=== PATIENT | male | born 1950 | race Caucasian/White ===

== ENCOUNTER → 2016-09-20 | Outpatient (CLI) | payer OTHER ==
--- NOTE | 2016-09-20 10:51 | US ---
Left Extremity Nonvascular Limited Ultrasound Indication: Unilateral inguinal pain. Rule out hernia. Technique: Left inguinal ultrasound is performed with and without Valsalva. Findings: Small inguinal lymph nodes are identified that are normal in ultrasound characteristics. Me dial to the inguinal canal, there is a hernia with opening of approximately 1 cm that contains all me senteric fat. No bowel. It is fully reducible. This is medial to the inguinal vessels. Impression: Left inguinal hernia medial to the inguinal vessels with an opening of about 1 cm in size , containing fat, fully reducible.
== END ==
LOC: FIMAGING 09:25
PROVIDERS: ATTEND Orthopaedic Surgery
DX: K40.90 Unilateral inguinal hernia, without obstruction or gangrene, not specified as recurrent (principal)

== ENCOUNTER 2016-10-26 09:25 | Day surgery (SDC) | payer OTHER ==
[2016-10-26] MEDS ORDERED: LIDOCAINE 1% 2 ML INJ ONE (09:43)
[2016-10-26] MEDS ORDERED: LIDOCAINE 1% 5 ML SDV ID PRN (09:50)
[2016-10-26] MEDS ORDERED: LR 1,000 ML IV ONE (09:50)
[2016-10-26] MEDS ORDERED: BUPIVACAINE 0.5% 30 ML SDV ONE (10:18)
[2016-10-26] MEDS ORDERED: LIDOCAINE 1% 30 ML SDV ONE (10:18)
[2016-10-26] MEDS ORDERED: CEFAZOLIN 1 GM/DEXTROSE/50 ML BAG IV ONE (10:19)
[2016-10-26] MEDS ORDERED: fentaNYL 100 MCG/2 ML INJ ONE (10:33)
[2016-10-26] MEDS ORDERED: morphINE *ANESTHESIA ONLY* 10 MG/ML VIAL ONE (10:37)
[2016-10-26] MEDS ORDERED: PROPOFOL/EMULSION 500 MG/50 ML BOTTLE IV ONE ×2 (10:38→11:31)
[2016-10-26] MEDS ORDERED: fentaNYL 100 MCG/2 ML INJ IVP ONE ×2 (11:00)
[2016-10-26] MEDS ORDERED: LORazepam 2 MG/ML INJ IVP ONE (11:00)
[2016-10-26] MEDS ORDERED: ONDANSETRON 4 MG/2 ML VIAL ONE (11:32)
[2016-10-26] MEDS ORDERED: LABETALOL HCL 5 MG/ML 20 ML MDV ONE (12:15)
[2016-10-26] MEDS ORDERED: HYDROCODONE/APAP 5/325 TAB ONE (12:45)
--- NOTE | 2016-10-26 14:43 | GOP ---
[f rep st] OPERATIVE REPORT DATE OF OPERATION: 10/26/2016 SURGEON: Joseph Wright MD ANESTHESIA: Monitored anesthetic care per Dr. Johns. PREOPERATIVE DIAGNOSIS: Left inguinal hernia. POSTOPERATIVE DIAGNOSIS: Left inguinal hernia. PROCEDURE PERFORMED: Open left inguinal hernia repair. FINDINGS: Patient had a moderate direct hernia and a moderate lipoma of the cord. ESTIMATED BLOOD LOSS: 20 cc. INDICATIONS: This is a 66-year-old male with a history of left groin bulge. Risks and benefits of procedure are discussed with the patient, questions were answered, and he wished to proceed. DESCRIPTION OF PROCEDURE: The patient was placed in the supine position. After the induction of adequate IV sedation, the patient was prepped and draped in the standard surgical fashion. Marcaine 0.5% was injected throughout the left groin for local anesthesia. An oblique incision was made and carried to the subcutaneous tissue using cautery. The external oblique was incised in the direction of its fibers. The cord was then surrounded at the pubic tubercle. The cord structures were then carefully dissected, preserving the vas and vessels. The hernia was then dissected down to preperitoneal fat and reduced. A plug was fashioned from Marlex and secured using 2-0 Vicryl interrupted. An onlay patch was created and affixed using 2-0 Prolene. Enough room was seen for the cord and an instrument tip. Good hemostasis was noted. The external oblique and Victor M's were approximated using 3-0 Vicryl in a running fashion. Skin was closed with 5-0 Biosyn subcuticular. The wound was sterilely dressed, the patient was taken to the post-anesthesia care unit in stable condition. COMPLICATIONS: None. DRAINS: None. /[id number]/MODL MTDD
== END 2016-10-26 13:40 | disposition home or self-care (01) ==
LOC: FSGY 09:25
PROVIDERS: ATTEND Surgery
PROC: 0YU60JZ Supplement Left Inguinal Region with Synthetic Substitute, Open Approach (ICD-10-PCS; principal; 2016-10-26 10:45)
DX: K40.90 Unilateral inguinal hernia, without obstruction or gangrene, not specified as recurrent (principal); I25.10 Atherosclerotic heart disease of native coronary artery without angina pectoris; E03.9 Hypothyroidism, unspecified; M10.9 Gout, unspecified; E11.9 Type 2 diabetes mellitus without complications; F43.12 Post-traumatic stress disorder, chronic; Z95.1 Presence of aortocoronary bypass graft; Z95.5 Presence of coronary angioplasty implant and graft
CPT/HCPCS: C1781; J0690; J2405; J2704; J3010; J3490